=== PATIENT | male | born 1980 | race Caucasian/White ===

== ENCOUNTER 2018-06-25 20:45 | Inpatient (IN) | payer MEDICAID ==
[~2018-06-25] VITALS: Ht 185.4 cm; Wt 89.8 kg
[2018-06-25 21:23] LABS: BASOPHILS % (AUTO) 0.5 % (0.0-2.0); HEMATOCRIT 39 % (39-51); HEMOGLOBIN 13.6 g/dL (13.5-17.5); LYMPHOCYTES # (AUTO) 1.7 /CMM (0.8-4.8); LYMPHOCYTES % (AUTO) 24.8 % (20.0-44.0); MEAN CORPUSCULAR HGB CONC 35 g/dl (31.0-36.0); MEAN CORPUSCULAR VOLUME 88 fL (80-96); MONOCYTES # (AUTO) 0.8 /CMM (0.1-1.30); MONOCYTES % (AUTO) 11.8 % (2.0-12.0); NEUTROPHILS # (AUTO) 4.4 /CMM (1.8-8.9); NEUTROPHILS % (AUTO) 60.9 % (43.0-81.0); PLATELET COUNT (AUTO) 290 /CMM (150-450); RDW COEFFICIENT OF VARIATION 12.3 (11.5-15.0); RED BLOOD CELL COUNT(AUTO) 4.45 MIL/uL (4.5-6.0)
[2018-06-25] MEDS ORDERED: IV NS 0.9% 1,000 ML BAG IV ONE ×3 (21:30→23:30)
[2018-06-25 21:59] LABS: CALCIUM, SERUM 8.4 mg/dL (8.5-10.1); CARBON DIOXIDE 27 mmol/L (21-32); CHLORIDE 99 mmol/L (98-107); CREATININE 1.5 mg/dL (0.6-1.3); GLUCOSE 104 mg/dL (74-106); POTASSIUM 3.8 mmol/L (3.5-5.1); SODIUM SERUM 136 mmol/L (136-145); UREA NITROGEN, BLOOD 24 mg/dL (7-18)
[2018-06-25 22:06] LABS: ALANINE AMINOTRANSFERASE 54 U/L (12-78); ALBUMIN 3.7 g/dL (3.4-5.0); ALKALINE PHOSPHATASE 82 U/L (46-116); ASPARTATE AMINOTRANSFERASE 41 U/L (15-37); BILIRUBIN,DIRECT 0.3 mg/dL (0.0-0.2); BILIRUBIN,TOTAL 1.5 mg/dL (0.2-1.0); TOTAL PROTEIN, SERUM 7.3 g/dL (6.4-8.2)
[2018-06-25 22:07] LABS: ACETAMINOPHEN 0 ug/ml (10-30); ALCOHOL, BLOOD < 3 mg/dL (0-0); SALICYLATE < 0.2 mg/dL (2.8-20.0)
--- NOTE | 2018-06-25 23:00 | NUR ---
pt resting in gurney. no signs of distress noted. pt vital signs within normal limits. will continue to monitor pt.
[2018-06-26 01:16] LABS: APPEARANCE,URINE CLEAR (CLEAR); BILIRUBIN,URINE 1+ (NEGATIVE); BLOOD, URINE NEGATIVE Ery/uL (NEGATIVE); COLOR,URINE YELLOW (YELLOW); KETONES,URINE 1+ (NEGATIVE); LEUKOCYTE ESTERASE ,URINE NEGATIVE (NEGATIVE); NITRITE, URINE NEGATIVE (NEGATIVE); PH,URINE 6.5 (5.0-8.0); PROTEIN,URINE NEGATIVE (NEGATIVE); UGLUCOSE NEGATIVE (NEGATIVE); UROBILINOGEN,URINE 0.2 EU/dL (0.2)
[2018-06-26 01:19] LABS: BACTERIA,URINE None seen /HPF (None Seen); RBC,URINE 0-2 /HPF (0-2); SQUAMOUS EPITHELIAL CELL,UR Few /HPF (None Seen); WBC,URINE 0-2 /HPF (0-3)
--- NOTE | 2018-06-26 01:28 | NUR ---
reort given to endy agosto for continuation of care.
[2018-06-26] MEDS ORDERED: IV D5/0.45 NACL 1,000 ML IV PRN (01:34)
[2018-06-26] MEDS ORDERED: ONDANSETRON HCL/PF 4 MG/2 ML VIAL IVP PRN (02:00)
[2018-06-26] MEDS ORDERED: Z GUARD REMEDY 2 OZ OINT TP PRN (02:00)
[2018-06-26] MEDS ORDERED: HYDROCODONE/APAP 5/325MG 1 EACH TABLET PO PRN (02:00)
[2018-06-26] MEDS ORDERED: MAG HYDROX/AL HYDROX/SIMETH 30 ML UDC PO PRN (02:00)
[2018-06-26] MEDS ORDERED: MAGNESIUM HYDROXIDE 30 ML UDC PO PRN (02:00)
[2018-06-26] MEDS ORDERED: ALBUTEROL FS 2.5 MG/3 ML VIAL.NEB NEB PRN (02:00)
[2018-06-26] MEDS ORDERED: ACETAMINOPHEN 325 MG TABLET PO PRN (02:00)
--- NOTE | 2018-06-26 02:35 | NUR ---
pt transfered to via [facility].
--- NOTE | 2018-06-26 02:39 | NUR ---
MS/TELE/RN RECEIVE PATIENT FROM [facility] VIA [facility]. PATIENT IS AWAKE, DROWSY, BUT ABLE TO COMMUNICATE AND CARRY CONVERSATION, ORIENTED X 4, COMFORTABLE, NO C/O PAIN, NO DISTRESS NOTED, ADMISSION DONE PER PROTOCOL. PER PATIENT HE TOOK XANAX JUST TO FEEL BETTER AND NOT TO COMMIT SUICIDE. PATIENT REFUSED SKIN ASSESSMENT, PLAN OF CARE DISCUSSED, VERBALIZED UNDERSTANDING AND AGREEMENT, TAUGHT THE USE OF CALL LIGHT AND PLACED IT AT BEDSIDE WITHIN REACH, INSTRUCTED TO CALL FOR ASSISTANCE, INSTRUCTED NOT TO AMBULATE ALONE TO PREVENT FALL, VERBALIZED UNDERSTANDING. WILL MONITOR.
[2018-06-26 03:43] VITALS: BP 95/53
--- NOTE | 2018-06-26 04:00 | NUR ---
MS/TELE/RN PATIENT IS SLEEPING AT THIS TIME, AROUSABLE, APPEAR COMFORTABLE, NO SIGNS OF DISTRESS NOTED, CALL LIGHT IN REACH. WILL CONTINUE TO MONITOR.
--- NOTE | 2018-06-26 08:04 | NUR ---
BOOK EDITOR NOTES PATIENT RECEIVED RESTING INSIDE ROOM. SLEEPING, EASILY AROUSABLE THROUGH VERBAL AND TACTILE STIMULI. BREATHING EVEN AND UNLABORED. NO SOB OR ACUTE DISTRESS. DENIES ANY PAIN OR DISCOMFORT. PATIENT CALM AND RELAXED. IV INTACT AND PATENT. WILL CONTINUE TO MONITOR. BED LOCKED AND IN LOW POSITION. BILATERAL UPPER SIDE RAILS UP AND LOCKED. CALL LIGHT WITHIN EASY REACH
--- NOTE | 2018-06-26 11:36 | NUR ---
Social service consult requested by Dr. Pulido for drug overdose. Pt. is a 38 year old female who was admitted to [facility] for drug overdose. YOHAN met with pt. bedside. Pt. is alert and oriented x 4. Pt appears well-groomed and cooperative with SW during the assessment. Pt. resides with his family at [address] [place] [address], in [facility]. Pt. is self-employed. Pt. denies an intentional overdose on Xanax. Pt. states he wanted to try to sleep and took a bit too many. Pt. denies any past suicidal attempts. Pt. is denying suicidal ideations and visual/auditory hallucinations at this time. Pt. has a psychiatric diagnosis of Depression and is taking Xanax. Pt. started on Xanax a few weeks ago. Pt. seems to not have a good relationship with his sister Karrie. He stated he hasn't spoken to her for 2 to 3 months. YOHAN informed pt's VIRY Carlin that pt. is denying suicidal ideations at this time and denies overdosing intentionally. YOHAN recommended VIRY Carlin to inform DR. Treviño for pt. to be consulted by a psychiatrist prior to discharge. VIRY Carlin informed SW he will follow up with Dr. Treviño.
--- NOTE | 2018-06-26 12:00 | NUR ---
CONTRACT OFFICER NOTES PATIENT SEEN AND EXAMINED BY DR. MCKEE. VERBALIZED THAT PATIENT IS MEDICALLY STABLE. WITH PLAN TO DISCHARGE HOME THIS AFTERNOON IF CLEARED BY PSYCH. AWAITING PSYCH CONSULT/EVAL. DR. SHAH, COVERING FOR DR. MARES, AWARE. PATIENT REMAINS CALM AND RELAXED. DENIES ANY SUICIDAL IDEATION, DENIES ANY HISTORY OF ATTEMPTS. WILL CONTINUE TO MONITOR
--- NOTE | 2018-06-26 14:46 | NUR ---
RADIOGRAPHY TECHNICIAN NOTES PATIENT SEEN AND EXAMINED BY DR. SHAH. WITH ORDER TO HAVE PATIENT EVALUATED BY CRISIS TEAM. ORDER NOTED AND CARRIED OUT. PLACED CALL TO [employer] CRISIS TEAM AND LEFT MESSAGE. AWAITING FOR CALL BACK
--- NOTE | 2018-06-26 14:53 | NUR ---
YOHAN received a call from Social Patient Registration Manager Mali Boykin requesting for SW to see the pt. again and inquire if pt. wants voluntary hospitalization at [facility]. Pt. was seen by Dr. Jacobo who had requested for Crisis team to evaluate the pt. YOHAN contacted [facility] and inquired with Nunu in intake if they accept emergency Medi-reny. Nunu confirmed that they do accept emergency Medi-reny. YOHAN met with pt. bedside again to inquire if he would be interested in voluntary hospitalization. Pt. declined to go voluntarily. YOHAN again asked pt. if he is suicidal. Pt. denied suicidal ideations once again. YOHAN inquired with pt. if there are any stressors at home that are causing him stress. Pt. stated his is with this third child and he needs to find more work which is causing him stress. YOHAN had spoken to pt's sister earlier via phone while SW was going to see the pt. Pt's sister was insisting on wanting the pt. to be involuntarily be on a 5150 hold. YOHAN also tried to speak with pt's mother, however she is [place]ambican speaking and could not communicate with the SW. YOHAN updated Mali Boykin regarding the aforementioned information.
--- NOTE | 2018-06-26 15:02 | NUR ---
Social work Note: This aligner typewriter got involved due to concern expressed by charge nurse that "family felt pt. was suicidal and needed to be on a 5150 and that there were numerous attempts in the past". Spoke with patient's who said that she did not think an acute psychiatric unit was appropriate at all for the patient. She said that it was her [id number] that is dictating this.She was upset and said staff should be speaking to her directly. She admitted that they could benefit from couples' counseling and was referred to [facility] [phone]. She felt her is depressed and that he could benefit from seeing a psychiatrist. She was given [facility], [address] [facility] [address] Jacobo wrote a note in which he noted that pt. was not suicidal and did not meet acute psychiatric inpatient criteria. is happy to take the patient home this evening. She will take him for outpatient psychiatric follow up. She asked for this aligner typewriter's direct number which was given.
--- NOTE | 2018-06-26 15:13 | NUR ---
Social Work Clarification Note: Spoke with Dr Jacobo who was unaware that pt. was already seen by Stephanie Arreola STRAP MACHINE OPERATOR who put in a note after pt. stated he did not want to kill himself. Dr Jacobo said he wanted someone other than himself to see the pt. due to the pressure from [id number] for hospitalization Dr Jacobo accepted the outcome and concurs with discharge plan home with referrals. said she was going to speak to the charge nurse, Iván, to discuss his discharge.
--- NOTE | 2018-06-26 15:34 | NUR ---
NURSING HOME ADMISSIONS DIRECTOR NOTES SPOKE WITH CLINICAL COUNSELOR AND SAID THAT CRISIS TEAM WILL NOT BE SEEING PATIENT PER REID MCNALLY. DR. SHHA AWARE, CLEARED PATIENT PATIENT FOR DISCHARGE. DR. MCKEE MADE AWARE. PATIENT FOR DISCHARGE HOME. WILL CONTINUE TO MONITOR
--- NOTE | 2018-06-26 16:45 | NUR ---
MS RN NOTES PATIENT FOR DISCHARGE HOME TODAY. DISCHARGE INSTRUCTIONS AND EDUCATION GIVEN AND VERBALIZED UNDERSTANDING. PATIENT CALM AND RELAXED. NO CHANGES IN LOC NOTED. DENIES S/I. NO AGGRESSIVE BEHAVIOR NOTED. ALL BELONGINGS COMPLETE UPON DISCHARGE, NO REPORT OF MISSING INVENTORY. IV REMOVED WITH MINIMAL BLEEDING NOTED, PRESSURE DRESSING PLACED ON SITE. PATIENT LEFT UNIT AMBULATORY, STEADY, NO C/O PAIN OR DISCOMFORT. PATIENT ESCORTED TO PARKING LOT. LEFT VIA PRIVATE CAR WITH FAMILY. MD AWARE OF DISCHARGE.
== END 2018-06-26 16:30 | disposition home or self-care (01) | DRG 812 ==
LOC: ER 20:46 → TELE 06-26 01:37
PROVIDERS: ADMIT Internal Medicine; ATTEND Internal Medicine
DX: T42.4X1A Poisoning by benzodiazepines, accidental (unintentional), initial encounter (principal); G92 Toxic encephalopathy; E80.6 Other disorders of bilirubin metabolism; E86.9 Volume depletion, unspecified; F17.210 Nicotine dependence, cigarettes, uncomplicated; N28.9 Disorder of kidney and ureter, unspecified; Y92.009 Unspecified place in unspecified non-institutional (private) residence as the place of occurrence of the external cause; Z86.19 Personal history of other infectious and parasitic diseases; J98.11 Atelectasis; F19.10 Other psychoactive substance abuse, uncomplicated; F32.9 Major depressive disorder, single episode, unspecified; R82.6 Abnormal urine levels of substances chiefly nonmedicinal as to source; N18.2 Chronic kidney disease, stage 2 (mild)
CPT/HCPCS: 36415; 71045-TC; 80048-TC; 80076-TC; 80305; 81000-TC; 82962-TC; 85025-TC; 87081-TC; A4606; G0480; J3490; J7030; Z7610

== ENCOUNTER 2019-04-23 11:20 | Emergency (ER) | payer MEDICAID ==
[~2019-04-23] VITALS: Ht 185.4 cm; Wt 88.9 kg
--- NOTE | 2019-04-23 11:32 | NUR ---
PT BIB FRIEND, ANXIOUS, C/O L SIDED WEAKNESS, AND NUMBNESS, "DROOLING" X 2 DAYS, PT IS AAOX4, NOT IN RESPIRATORY DISTRESS, V/S STABLE, KEPT RESTED AND COMFORTABLE, WILL CONTINUE TO MONITOR.
--- NOTE | 2019-04-23 11:47 | NUR ---
MUSIC INSTRUCTOR AT BEDSIDE FOR XRAY.
--- NOTE | 2019-04-23 11:55 | NUR ---
IV LINE ESTABLISHED, BLOOD DRAWNED AND SENT TO LAB.
[2019-04-23 11:59] LABS: BASOPHILS # (AUTO) 0.1 /CMM (0.0-0.2); BASOPHILS % (AUTO) 0.9 % (0.0-2.0); EOSINOPHILS % (AUTO) 1.8 % (0.0-6.0); HEMATOCRIT 35 % (39-51); HEMOGLOBIN 11.3 g/dL (13.5-17.5); LYMPHOCYTES # (AUTO) 2.7 /CMM (0.8-4.8); LYMPHOCYTES % (AUTO) 37.6 % (20.0-44.0); MEAN CORPUSCULAR HGB CONC 32 g/dl (31.0-36.0); MEAN CORPUSCULAR VOLUME 78 fL (80-96); MONOCYTES # (AUTO) 0.6 /CMM (0.1-1.30); MONOCYTES % (AUTO) 8.4 % (2.0-12.0); NEUTROPHILS # (AUTO) 3.6 /CMM (1.8-8.9); NEUTROPHILS % (AUTO) 51.3 % (43.0-81.0); PLATELET COUNT (AUTO) 538 /CMM (150-450); WHITE BLOOD COUNT (AUTO) 7.1 K/uL (4.3-11.0)
[2019-04-23 12:05] LABS: CALCIUM, SERUM 9.6 mg/dL (8.5-10.1); CARBON DIOXIDE 26 mmol/L (21-32); CHLORIDE 103 mmol/L (98-107); CREATININE 0.9 mg/dL (0.6-1.3); GLUCOSE 103 mg/dL (74-106); POTASSIUM 4.2 mmol/L (3.5-5.1); SODIUM SERUM 138 mmol/L (136-145); UREA NITROGEN, BLOOD 14 mg/dL (7-18)
[2019-04-23] MEDS ORDERED: LORAZEPAM 1 MG TABLET ONE (12:29)
[2019-04-23 12:30] VITALS: BP 126/75
[2019-04-23] MEDS ORDERED: LORAZEPAM 1 MG TABLET PO ONE (12:30)
--- NOTE | 2019-04-23 12:34 | NUR ---
VERBALIZED UNDERSTANDING OF ACI,NO ADVERSE RXN TO MEDS GIVEN,AMBULATORY,STEADY GAIT,ADVISED TO NOT DRIVE, D/C TO WR
== END 2019-04-23 12:37 | disposition home or self-care (01) ==
LOC: ER 11:23
DX: F41.9 Anxiety disorder, unspecified (principal); R00.2 Palpitations; F10.10 Alcohol abuse, uncomplicated; F17.200 Nicotine dependence, unspecified, uncomplicated; Y90.9 Presence of alcohol in blood, level not specified; Z86.19 Personal history of other infectious and parasitic diseases; Z98.890 Other specified postprocedural states
CPT/HCPCS: 36415; 71045-TC; 80048-TC; 84484-TC; 85025-TC

== ENCOUNTER 2019-09-29 15:05 | Emergency (ER) | payer MEDICAID ==
[~2019-09-29] VITALS: Ht 185.4 cm; Wt 83.9 kg
--- NOTE | 2019-09-29 15:10 | NUR ---
L SIDED CHEST PAIN, SOB, DIZZINESS STARTED 2 HOURS AGO, PT AWAKE, ALERT, -SOB, NAD NOTED, VSS, PENDING M ISIS
[2019-09-29] MEDS ORDERED: IPRATROPIUM NEB FS 0.5 MG/2.5 ML AMPUL.NEB ONE (15:39)
[2019-09-29] MEDS ORDERED: ALBUTEROL FS 2.5 MG/3 ML VIAL.NEB ONE (15:39)
[2019-09-29] MEDS ORDERED: methylPREDNISolone SOD SUCC 125 MG/2ML VIAL ONE (15:45)
[2019-09-29 15:59] LABS: BASOPHILS # (AUTO) 0.1 /CMM (0.0-0.2); BASOPHILS % (AUTO) 0.4 % (0.0-2.0); EOSINOPHILS % (AUTO) 2.6 % (0.0-6.0); HEMATOCRIT 35 % (39-51); HEMOGLOBIN 11.1 g/dL (13.5-17.5); LYMPHOCYTES # (AUTO) 1.9 /CMM (0.8-4.8); MEAN CORPUSCULAR HGB CONC 32 g/dl (31.0-36.0); MEAN CORPUSCULAR VOLUME 85 fL (80-96); MONOCYTES % (AUTO) 7.1 % (2.0-12.0); NEUTROPHILS # (AUTO) 10.3 /CMM (1.8-8.9); NEUTROPHILS % (AUTO) 75.9 % (43.0-81.0); PLATELET COUNT (AUTO) 271 /CMM (150-450); RED BLOOD CELL COUNT(AUTO) 4.09 MIL/uL (4.5-6.0); WHITE BLOOD COUNT (AUTO) 13.6 K/uL (4.3-11.0)
[2019-09-29] MEDS ORDERED: IPRATROPIUM NEB FS 0.5 MG/2.5 ML AMPUL.NEB NEB ONE (16:00)
[2019-09-29] MEDS ORDERED: methylPREDNISolone SOD SUCC 125 MG/2ML VIAL IV ONE (16:00)
[2019-09-29] MEDS ORDERED: IV NS 0.9% 1,000 ML BAG IV ONE (16:00)
[2019-09-29] MEDS ORDERED: ALBUTEROL FS 2.5 MG/3 ML VIAL.NEB CONTNEB ONE (16:00)
[2019-09-29 16:10] LABS: CALCIUM, SERUM 8.3 mg/dL (8.5-10.1); CARBON DIOXIDE 29 mmol/L (21-32); CHLORIDE 104 mmol/L (98-107); CREATININE 0.8 mg/dL (0.6-1.3); GLUCOSE 81 mg/dL (74-106); POTASSIUM 4.4 mmol/L (3.5-5.1); SODIUM SERUM 138 mmol/L (136-145); UREA NITROGEN, BLOOD 14 mg/dL (7-18)
[2019-09-29 17:23] VITALS: BP 135/90
--- NOTE | 2019-09-29 17:30 | NUR ---
Patient discharged to home in stable condition. Written and verbal after care instructions given. Patient verbalizes understanding of instruction. IV removed. Catheter intact and site benign. Pressure and 4x4 applied to site. No bleeding noted.
== END 2019-09-29 17:35 | disposition home or self-care (01) ==
LOC: ER 15:05
DX: J20.9 Acute bronchitis, unspecified (principal); D64.9 Anemia, unspecified; F15.10 Other stimulant abuse, uncomplicated; F17.200 Nicotine dependence, unspecified, uncomplicated; Z98.890 Other specified postprocedural states
CPT/HCPCS: 36415; 71045; 80048; 80305; 80307; 84484; 85025; 85378; 93005 ×3; 94644; 96361; 96374; 99285; 99406; J2930; J7030; G0480

== ENCOUNTER 2022-12-16 20:48 | Emergency (ER) | payer MEDICAID, OTHER ==
[~2022-12-16] VITALS: Ht 185.4 cm; Wt 83.9 kg
--- NOTE | 2022-12-16 21:25 | NUR ---
Pt is noted alert, responsive as he came from homre C/O Testicle pain and swelling xyesterday and Umbilical Hernia [id number] after Lifting something heavy. Pt care continue with MD at bedside.
[2022-12-16] MEDS ORDERED: KETOROLAC TROMETHAMINE INJ 60 MG/2 ML VIAL IM ONE (21:30)
[2022-12-16] MEDS ORDERED: KETOROLAC TROMETHAMINE INJ 30 MG/ML VIAL ONE (21:32)
--- NOTE | 2022-12-16 21:36 | NUR ---
Toradol 30mg IM given as ordered as awaits results. Pt care continue.
[2022-12-16 21:56] LABS: BILIRUBIN,URINE NEGATIVE (NEGATIVE); COLOR,URINE YELLOW (YELLOW); LEUKOCYTE ESTERASE ,URINE NEGATIVE (NEGATIVE); NITRITE, URINE NEGATIVE (NEGATIVE); PROTEIN,URINE NEGATIVE (NEGATIVE); UGLUCOSE NEGATIVE (NEGATIVE)
[2022-12-16 21:57] LABS: BASOPHILS # (AUTO) 0.1 K/uL (0.0-0.2); BASOPHILS % (AUTO) 0.7 % (0.0-2.0); EOSINOPHILS % (AUTO) 9.7 % (0.0-6.0); HEMATOCRIT 36 % (39-51); HEMOGLOBIN 12.3 g/dL (13.5-17.5); LYMPHOCYTES % (AUTO) 23.4 % (20.0-44.0); MEAN CORPUSCULAR HGB CONC 34 g/dl (31.0-36.0); MEAN CORPUSCULAR VOLUME 90 fL (80-96); MONOCYTES % (AUTO) 11.2 % (2.0-12.0); NEUTROPHILS # (AUTO) 4.7 K/uL (1.8-8.9); PLATELET COUNT (AUTO) 303 K/uL (150-450); RED BLOOD CELL COUNT(AUTO) 4.07 MIL/uL (4.5-6.0); WHITE BLOOD COUNT (AUTO) 8.6 K/uL (4.3-11.0)
[2022-12-16 22:08] LABS: BACTERIA,URINE None seen /HPF (None Seen); SQUAMOUS EPITHELIAL CELL,UR 0-2 /HPF (None Seen); WBC,URINE 0-2 /HPF (0-3)
[2022-12-16 22:17] LABS: CALCIUM, SERUM 8.1 mg/dL (8.5-10.1); CREATININE 0.9 mg/dL (0.6-1.3); POTASSIUM 3.9 mmol/L (3.5-5.1)
--- NOTE | 2022-12-17 01:05 | NUR ---
CALLED RADIOLOGY TO FOLLOW UP ON ULTRASOUND REPORT
[2022-12-17] MEDS ORDERED: KETO10TA2 PO (01:50)
--- NOTE | 2022-12-17 02:02 | NUR ---
Pt is noted off the unit as he is been discharge to home with all instructions given.
[2022-12-17 02:03] VITALS: BP 132/99
== END 2022-12-17 02:20 | disposition home or self-care (01) ==
LOC: ER 20:53
DX: N43.3 Hydrocele, unspecified (principal); F17.200 Nicotine dependence, unspecified, uncomplicated
CPT/HCPCS: 99285; 96372; 76870; 85025; 80048; 83605; 85652; 81001; 36415; 86140; J1885